=== PATIENT | female | born 1965 | race Caucasian/White ===

== ENCOUNTER 2016-07-13 03:14 | Emergency (ER) | payer OTHER ==
[~2016-07-13] VITALS: Ht 167.6 cm; Wt 63.5 kg
[2016-07-13 03:36] VITALS: BP 121/70
[2016-07-13 04:24] LABS: PREGNANCY TEST URINE QUAL NEGATIVE (NEGATIVE)
[2016-07-13 04:25] LABS: KETONES,URINE TRACE (NEGATIVE); LEUKOCYTE ESTERASE ,URINE 2+ (NEGATIVE); PH,URINE 5.5 (5.0-8.0)
[2016-07-13 04:27] LABS: ADD UA MICROSCOPIC YES
[2016-07-13 04:28] LABS: ADD URINE CULTURE YES; RBC,URINE TOO NUMEROUS TO COUN /HPF (0-2); WBC,URINE TOO NUMEROUS TO COUN /HPF (0-3)
[2016-07-13] MEDS ORDERED: NITROFURANTOIN/NITROFURAN MAC 100 MG CAPSULE PO ONE (05:00)
[2016-07-13] MEDS ORDERED: PHENAZOPYRIDINE HCL 200 MG TABLET PO ONE (05:00)
[2016-07-13] MEDS ORDERED: PHENAZOPYRIDINE HCL 200 MG TABLET ONE (05:02)
[2016-07-13] MEDS ORDERED: NITROFURANTOIN/NITROFURAN MAC 100 MG CAPSULE ONE (05:03)
== END 2016-07-13 05:35 | disposition home or self-care (01) ==
LOC: ER 03:14
DX: N30.90 Cystitis, unspecified without hematuria (principal); F32.9 Major depressive disorder, single episode, unspecified; Z87.440 Personal history of urinary (tract) infections
CPT/HCPCS: 81001; 84703; 87086; 99285; A4606; Z7610; 81000-TC; 87186-TC

== ENCOUNTER 2016-10-26 21:35 | Emergency (ER) | payer MEDICAID, OTHER ==
[~2016-10-26] VITALS: Ht 165.1 cm; Wt 74.8 kg
[2016-10-26 22:22] VITALS: BP 122/75
== END 2016-10-26 22:36 | disposition home or self-care (01) ==
LOC: ER 21:37
DX: J06.9 Acute upper respiratory infection, unspecified (principal); F32.9 Major depressive disorder, single episode, unspecified; F41.9 Anxiety disorder, unspecified; I44.7 Left bundle-branch block, unspecified
CPT/HCPCS: 99283; A4606; Z7610

== ENCOUNTER 2017-08-26 12:54 | Emergency (ER) | payer BC, MEDICAID ==
[~2017-08-26] VITALS: Ht 162.6 cm; Wt 65.3 kg
--- NOTE | 2017-08-26 13:05 | NUR ---
[id number], bib family c/o not feeling well, chest pain, can't sleep well and depression. Resp is even and unlabored with nad noted. Skin is warm and dry. EKG in progress at BS. Placed on a gown and monitor. Awaiting md for eval.
[2017-08-26] MEDS ORDERED: LORAZEPAM 1 MG TABLET ONE (14:20)
[2017-08-26] MEDS ORDERED: LORAZEPAM 1 MG TABLET PO ONE (14:30)
[2017-08-26 14:36] VITALS: BP 130/80
--- NOTE | 2017-08-26 14:36 | NUR ---
Patient discharged to home in stable condition. Written and verbal after care instructions given. Patient verbalizes understanding of instruction.
== END 2017-08-26 14:39 | disposition home or self-care (01) ==
LOC: ER 12:57
DX: F41.8 Other specified anxiety disorders (principal); I44.7 Left bundle-branch block, unspecified; Z98.890 Other specified postprocedural states
CPT/HCPCS: 93005; 99283; A4606; Z7610

== ENCOUNTER 2018-12-14 10:55 | Emergency (ER) | payer MEDICAID ==
[~2018-12-14] VITALS: Ht 162.6 cm; Wt 71.7 kg
[2018-12-14] MEDS ORDERED: ASPIRIN 81 MG TAB.CHEW ONE (11:23)
[2018-12-14] MEDS ORDERED: ASPIRIN 81 MG TAB.CHEW PO ONE (11:30)
[2018-12-14 11:32] LABS: BASOPHILS % (AUTO) 0.7 % (0.0-2.0); EOSINOPHILS % (AUTO) 2.4 % (0.0-6.0); HEMATOCRIT 43 % (33-45); LYMPHOCYTES # (AUTO) 1.4 /CMM (0.8-4.8); LYMPHOCYTES % (AUTO) 24.2 % (20.0-44.0); MEAN CORPUSCULAR HGB CONC 35 g/dl (31.0-36.0); MEAN CORPUSCULAR VOLUME 95 fL (82-100); MONOCYTES # (AUTO) 0.4 /CMM (0.1-1.30); MONOCYTES % (AUTO) 7.7 % (2.0-12.0); NEUTROPHILS # (AUTO) 3.8 /CMM (1.8-8.9); PLATELET COUNT (AUTO) 232 /CMM (150-450); RED BLOOD CELL COUNT(AUTO) 4.56 MIL/uL (4.0-5.2); WHITE BLOOD COUNT (AUTO) 5.8 K/uL (4.3-11.0)
[2018-12-14 11:41] LABS: CALCIUM, SERUM 9.6 mg/dL (8.5-10.1); CARBON DIOXIDE 29 mmol/L (21-32); CHLORIDE 102 mmol/L (98-107); CREATININE 0.7 mg/dL (0.6-1.3); GLUCOSE 96 mg/dL (74-106); POTASSIUM 4.5 mmol/L (3.5-5.1); SODIUM SERUM 138 mmol/L (136-145); UREA NITROGEN, BLOOD 12 mg/dL (7-18)
[2018-12-14 11:46] LABS: ALANINE AMINOTRANSFERASE 52 U/L (12-78); ALBUMIN 3.7 g/dL (3.4-5.0); ALKALINE PHOSPHATASE 60 U/L (46-116); ASPARTATE AMINOTRANSFERASE 28 U/L (15-37); BILIRUBIN,DIRECT 0.1 mg/dL (0.0-0.2); BILIRUBIN,TOTAL 0.3 mg/dL (0.2-1.0); TOTAL PROTEIN, SERUM 7.5 g/dL (6.4-8.2)
[2018-12-14 12:37] VITALS: BP 138/88
== END 2018-12-14 12:39 | disposition home or self-care (01) ==
LOC: ER 10:58
DX: R07.89 Other chest pain (principal); F32.9 Major depressive disorder, single episode, unspecified; F41.9 Anxiety disorder, unspecified; Z98.890 Other specified postprocedural states
CPT/HCPCS: 36415; 71045-TC; 80048-TC; 80076-TC; 84484-TC; 85025-TC